=== PATIENT | female | born 1935 | race Caucasian/White ===

== ENCOUNTER 2017-07-31 10:54 | Day surgery (SDC) | payer OTHER ==
[~2017-07-31] VITALS: Ht 157.5 cm; Wt 66.2 kg
[~2017-07-31 10:54] MED LIST: ACEBUTCAFT PO; ACET325 PO; ACET500 PO; ACETAMINOPHEN PO; ALFALFA; ALFALFA250 MG PO; ANAS1; ASPI325 PO; ASPI81EC; ASPIRIN PO; Advil200 M1 PO; CHOL10002 PO; COLON CARE; CYAN500; DIPH50 PO; DOCU100 PO; ENOX40I SUBQ; FISH1000; FISH1000 PO; FLUT.05NI; GLUCHON PO; HYDACE10B; HYDACE5; HYDCHL12.5; HYDCHL12.5 PO; HYDMOR2 PO; HYDR1TAB94 PO; IBUP200 PO; IBUP400; LISI20 PO; LISI5; LISI5 PO; LISINIPRIL PO; NAPR220 PO; Nasal Spray30 ML NS; OSTEO-BI-FLEX; OTC SLEEP AID PO; PROACE50 PO; PROBIOTIC; TAMO10; VICODIN ES 7.51 EACH PO; VITAMIN E; VITS AND SUPPS; Zanaflex4 M1 PO; [UNRECOGNIZED DRUG - OTHER]
[2018-05-19] MEDS ORDERED: Fish Oil 1,0001 EAC3 PO (11:45)
[2018-05-19] MEDS ORDERED: CHOL10002 PO (11:46)
[2018-05-19] MEDS ORDERED: ALFALFA250 MG PO (11:46)
[2018-05-19] MEDS ORDERED: VICODIN 5-3001 EACH PO (11:46)
[2018-05-19] MEDS ORDERED: LUTEIN1 GM PO (11:48)
[2018-05-19] MEDS ORDERED: GABA100 PO (11:48)
[2018-05-19] MEDS ORDERED: TAMO10 PO (11:48)
== END 2017-07-31 12:16 | disposition home or self-care (01) ==
LOC: ORSCSDS 10:54
PROVIDERS: Anesthesiology
PROC: 3E0R33Z Introduction of Anti-inflammatory into Spinal Canal, Percutaneous Approach (ICD-10-PCS; principal; 2017-07-31 12:00)
DX: M51.16 Intervertebral disc disorders with radiculopathy, lumbar region (principal); I10 Essential (primary) hypertension; Z79.82 Long term (current) use of aspirin; Z79.899 Other long term (current) drug therapy
CPT/HCPCS: J1040

== ENCOUNTER 2022-01-27 10:38 | Inpatient (IN) | payer OTHER ==
[~2022-01-27] VITALS: Ht 154.9 cm; Wt 63.5 kg
[~2022-01-27 10:38] MED LIST changes: +Fish Oil 1,0001 EAC3 PO; +GABA100 PO; +LUTEIN1 GM PO; +TAMO10 PO; +VICODIN 5-3001 EACH PO
[2022-01-27 11:18] LABS: BASOPHILS ABSOLUTE AUTO 0.02 K/mm3 (0.00-0.23); BASOPHILS PERCENT AUTO 0 % (0-2); EOSINOPHILS PERCENT AUTO 0 % (0-6); Hematocrit 38.7 % (33.0-51.0); Hemoglobin 13.4 g/dL (11.5-16.0); IMMATURE GRAN ABSOLUTE AUTO 0.06 K/mm3 (0.00-0.10); IMMATURE GRAN PERCENT AUTO 0 % (0-1); LYMPHOCYTES ABSOLUTE AUTO 0.57 K/mm3 (0.84-5.20); LYMPHOCYTES PERCENT AUTO 4 % (21-46); MONOCYTES ABSOLUTE AUTO 0.75 K/mm3 (0.16-1.47); MONOCYTES PERCENT AUTO 6 % (4-13); Mean Corpuscular HGB 31.8 pg (26.0-34.0); Mean Corpuscular HGB Conc 34.6 g/dL (31.5-36.5); Mean Corpuscular Volume 92 fL (80-100); Mean Platelet Volume 9.4 fL (9.1-12.4); NEUTROPHILS ABSOLUTE AUTO 12.21 K/mm3 (1.96-9.15); NEUTROPHILS PERCENT AUTO 90 % (41-73); Platelet Count 258 K/mm3 (150-400); RDW Coefficient Variation 13.5 % (11.7-14.2); RDW Standard Deviation 45.4 fL (35.1-46.3); Red Blood Cell Count 4.21 M/mm3 (3.80-5.20); White Blood Cell Count 13.61 K/mm3 (4.00-11.30)
[2022-01-27 11:34] LABS: Albumin, Blood 3.1 g/dL (3.4-5.0); Albumin/Globulin Ratio 0.8 (0.8-1.8); Bilirubin, Total 1.6 mg/dL (0.1-1.0); Bun/Creatinine Ratio 16.7 (12.0-20.0); Creatinine, Blood 0.96 mg/dL (0.40-1.00); Globulin, Blood 3.8 g/dL (2.2-4.0); Magnesium, Blood 1.7 mg/dL (1.6-2.4); Potassium, Blood 2.9 mmol/L (3.5-5.5); Thyroid Stimulating Hormone 0.571 uIU/mL (0.360-4.800); Total Protein, Blood 6.9 g/dL (6.4-8.2)
[2022-01-27 12:01] LABS: Source, Urine Clean Catch
[2022-01-27 12:06] LABS: Appearance, Urine Cloudy (Clear); Bilirubin, Urine Neg (Neg); Blood, Urine 2+ (Neg); Color, Urine Yellow (P-Yellow); Glucose Qualitative, Urine Neg (Neg); Ketones, Urine Neg (Neg); Leukocyte Esterase, Urine 3+ (Neg); Nitrite, Urine Neg (Neg); Protein, Urine 1+ (Neg); Specific Gravity, Urine 1.005 (1.003-1.022); Urobilinogen, Urine NORM (Normal)
[2022-01-27 12:51] LABS: Influenza A, PCR NEGATIVE (NEGATIVE); Influenza B, PCR NEGATIVE (NEGATIVE); Resp Syncytial Virus, PCR NEGATIVE (NEGATIVE); SARS-Cov-2 (COVID-19) PCR, MMC NEGATIVE (NEGATIVE)
[2022-01-27 13:12] LABS: Bacteria Many /hpf; Granular Casts 0-2 /lpf (0); Hyaline Casts 0-2 /lpf (0-2); Renal Epithelial Rare /hpf (0-Rare); Squamous Epithelial Cells Many /hpf (Few); Transitional Epithelial Cells Rare /hpf (0-Rare); White Blood Cells, Urine TNTC /hpf (0-5)
[2022-01-27] MEDS ORDERED: ATORVASTATIN CA80 M1 PO (14:43)
[2022-01-27] MEDS ORDERED: FLUO10 PO ×3 (14:44→22:43)
[2022-01-27] MEDS ORDERED: ATORVASTATIN CA20 MG PO (15:58)
[2022-01-27] MEDS ORDERED: ALEN10 PO (17:08)
[2022-01-27 17:15] LABS: Anion Gap 11 mmol/L (6-16); Blood Urea Nitrogen 15 mg/dL (8-24); Bun/Creatinine Ratio 15.2 (12.0-20.0); CO2, Blood 24 mmol/L (21-32); Chloride, Blood 94 mmol/L (98-108); Creatinine, Blood 0.99 mg/dL (0.40-1.00); Glomerular Filtration Rate 56 (60-); Glucose, Blood 141 mg/dL (70-99); Sodium, Blood 129 mmol/L (136-145)
[2022-01-27] MEDS ORDERED: ATOR20 PO (22:42)
[2022-01-27] MEDS ORDERED: LISI5 PO (22:44)
[2022-01-27] MEDS ORDERED: PRED FORTE5 M1 BOTHEYES (22:44)
[2022-01-27] MEDS ORDERED: KETOROLAC TROMET5 M3 BOTHEYES (22:45)
[2022-01-27] MEDS ORDERED: HYDROCODONE-AC1 EA18 PO (22:46)
--- NOTE | 2022-01-28 03:29 | NUR ---
ENERGY TRADER SUMMARY TOLERATED HS MEDS CRUSHED WITH APPLESAUCE THE PILLS WERE "TOO BIG" TO SWALLOW OTHERWISE. HAS BEEN RESTING QUIETLY WITH FEW INTERRUPTIONS, OTHER THAN REQUESTS FOR "BEDPAN" AND ANALGESICS. IVF OF 0.5 NS INFUSING AT 100 ML/HR. CALL LIGHT IN REACH. WILL CONTINUE TO MONITOR
[2022-01-28 05:24] LABS: BASOPHILS ABSOLUTE AUTO 0.02 K/mm3 (0.00-0.23); BASOPHILS PERCENT AUTO 0 % (0-2); EOSINOPHILS ABSOLUTE AUTO 0.06 K/mm3 (0.00-0.68); EOSINOPHILS PERCENT AUTO 1 % (0-6); Hematocrit 32.3 % (33.0-51.0); Hemoglobin 11.3 g/dL (11.5-16.0); IMMATURE GRAN ABSOLUTE AUTO 0.05 K/mm3 (0.00-0.10); IMMATURE GRAN PERCENT AUTO 0 % (0-1); LYMPHOCYTES ABSOLUTE AUTO 1.21 K/mm3 (0.84-5.20); LYMPHOCYTES PERCENT AUTO 10 % (21-46); MONOCYTES ABSOLUTE AUTO 1.13 K/mm3 (0.16-1.47); MONOCYTES PERCENT AUTO 10 % (4-13); Mean Corpuscular HGB 31.9 pg (26.0-34.0); Mean Corpuscular Volume 91 fL (80-100); Mean Platelet Volume 8.9 fL (9.1-12.4); NEUTROPHILS ABSOLUTE AUTO 9.16 K/mm3 (1.96-9.15); NEUTROPHILS PERCENT AUTO 79 % (41-73); Platelet Count 196 K/mm3 (150-400); RDW Coefficient Variation 13.9 % (11.7-14.2); RDW Standard Deviation 46.5 fL (35.1-46.3); Red Blood Cell Count 3.54 M/mm3 (3.80-5.20); White Blood Cell Count 11.63 K/mm3 (4.00-11.30)
[2022-01-28 05:48] LABS: Albumin, Blood 2.6 g/dL (3.4-5.0); Anion Gap 8 mmol/L (6-16); Blood Urea Nitrogen 18 mg/dL (8-24); Bun/Creatinine Ratio 29.5 (12.0-20.0); CO2, Blood 26 mmol/L (21-32); Calcium, Blood 9.2 mg/dL (8.5-10.1); Chloride, Blood 94 mmol/L (98-108); Creatinine, Blood 0.61 mg/dL (0.40-1.00); Glomerular Filtration Rate 88 (60-); Glucose, Blood 104 mg/dL (70-99); Magnesium, Blood 2.6 mg/dL (1.6-2.4); Phosphorus, Blood 1.9 mg/dL (2.5-4.9); Potassium, Blood 3.3 mmol/L (3.5-5.5); Sodium, Blood 128 mmol/L (136-145)
--- NOTE | 2022-01-28 15:55 | NUR ---
SHIFT SUMMARY PT AxOx3 WITH INTERM CONFUSION. PT COOPERATIVE WITH CARE. PT HAD ECHO TODAY. PHYSICAL AND OCCUPATIONAL THERAPY IN FOR EVAL AND TX THIS SHIFT. PT REPORTS CHRONIC PAIN TO R SIDE. MEDICATED PER EMAR WITH REPORTED RELIEF. PT REPORTS GENERAL WEAKNESS. 2 ASSIST W/FWW AND GB FOR TRANSFERS. PT'S DAUGHTER IN FOR VISIT THIS SHIFT, UPDATED ON PLAN OF CARE BY . PT IS CURRENTLY BEING RECOMMENDED FOR SNF UPON DC. VITALS REVIEWED. PT IS RESTING IN BED WITH CALL LIGHT IN REACH. DENIES ANY NEEDS AT THIS TIME.
[2022-01-29 04:57] LABS: BASOPHILS ABSOLUTE AUTO 0.02 K/mm3 (0.00-0.23); BASOPHILS PERCENT AUTO 0 % (0-2); EOSINOPHILS ABSOLUTE AUTO 0.03 K/mm3 (0.00-0.68); EOSINOPHILS PERCENT AUTO 0 % (0-6); Hematocrit 36.7 % (33.0-51.0); Hemoglobin 12.8 g/dL (11.5-16.0); IMMATURE GRAN ABSOLUTE AUTO 0.05 K/mm3 (0.00-0.10); IMMATURE GRAN PERCENT AUTO 1 % (0-1); LYMPHOCYTES ABSOLUTE AUTO 0.94 K/mm3 (0.84-5.20); LYMPHOCYTES PERCENT AUTO 10 % (21-46); MONOCYTES ABSOLUTE AUTO 0.86 K/mm3 (0.16-1.47); MONOCYTES PERCENT AUTO 9 % (4-13); Mean Corpuscular HGB 31.5 pg (26.0-34.0); Mean Corpuscular HGB Conc 34.9 g/dL (31.5-36.5); Mean Corpuscular Volume 90 fL (80-100); Mean Platelet Volume 8.8 fL (9.1-12.4); NEUTROPHILS ABSOLUTE AUTO 7.98 K/mm3 (1.96-9.15); NEUTROPHILS PERCENT AUTO 81 % (41-73); Platelet Count 227 K/mm3 (150-400); RDW Coefficient Variation 13.7 % (11.7-14.2); RDW Standard Deviation 45.4 fL (35.1-46.3); Red Blood Cell Count 4.06 M/mm3 (3.80-5.20); White Blood Cell Count 9.88 K/mm3 (4.00-11.30)
[2022-01-29 05:12] LABS: Albumin, Blood 2.9 g/dL (3.4-5.0); Anion Gap 10 mmol/L (6-16); Blood Urea Nitrogen 10 mg/dL (8-24); Bun/Creatinine Ratio 22.7 (12.0-20.0); CO2, Blood 24 mmol/L (21-32); Calcium, Blood 9.1 mg/dL (8.5-10.1); Chloride, Blood 91 mmol/L (98-108); Creatinine, Blood 0.44 mg/dL (0.40-1.00); Glomerular Filtration Rate 95 (60-); Glucose, Blood 134 mg/dL (70-99); Magnesium, Blood 1.6 mg/dL (1.6-2.4); Phosphorus, Blood 1.7 mg/dL (2.5-4.9); Potassium, Blood 2.9 mmol/L (3.5-5.5); Sodium, Blood 125 mmol/L (136-145)
--- NOTE | 2022-01-29 05:44 | NUR ---
SHIFT SUMMARY 84 YR F ADMITTED ON 01/27/22 FOR UTI/PNEUMONIA. DNR. PT IS VERY CONFUSED AND DOES NOT SEEM TO UNDERSTAND WHERE SHE IS OR WHY. SHE FIDGETS WITH HER HANDS ALOT IF SHE IS ANXIOUS AND DOESN'T KNOW WHAT TO DO. SHE STATED MULTIPLE TIMES THAT SHE NEEDED TO "GET THINGS IN ORDER". PER INSTALLATION SUPERINTENDENT PT HAD SEVERAL ST SPIKES IT WAS DISCUSSED W/ CHARGE NURSE WHO DECIDED THAT AN EKG WAS NOT WARRANTED AT THIS TIME.
--- NOTE | 2022-01-29 12:50 | NUR ---
SPOKE TO DAUGHTER JAYNA KAT DORANTES SPOKE TO THIS RN AND STATED THAT THE PT LIVES ALONE IN HER HOUSE. HER DAUGHTER MARSHALL LIVES ON THE PROPERTY APART FROM THE HOUSE. DR. GARCIA GIVEN MAN NUMBER. JAYNA ESCOBEDO POA: [phone]
--- NOTE | 2022-01-29 17:19 | NUR ---
SHIFT SUMMARY PT FELL THIS AM IN THE HALLWAY. SEE POST FALL NOT. PT MORE ORIENTED THIS AFTERNOON AND AWARE OF WHERE SHE IS AND WHY SHE IS HERE. PT DOES NOT REMEMBER THE MORNING OR FALLING. PT TRANSFERING EASIER WITH ONLY 1 ASSIST THIS AFTERNOON. MEDICATED FOR PAIN TWICE THIS SHIFT SO FAR. DR. GARCIA NOTIFIED THAT PTS DAUGHTER, JAYNA WANTED TO BE UPDATED ON PT CONDITION. NO OTHER ACUTE CHANGES IN ASSESSMENT AT THIS TIME. VS REVIEWED. CALL LIGHT IN REACH. DENIES OTHER NEEDS A THIS TIME.
[2022-01-30 01:36] LABS: C DIFFICILE DNA POSITIVE (Negative)
--- NOTE | 2022-01-30 04:28 | NUR ---
SHIFT SUMMARY NO ACUTE CHANGES TO PT CONDITION. PT RECENTLY MEDICATED PER EMAR FOR RECURRING BACK AND SIDE PAIN. PT HAS NO OTHER COMPLAINTS AT THIS TIME. CALL LIGHT IS WITHIN HER REACH AND SHE HAS BEEN INSTRUCTED ON HOW TO USE IT.
[2022-01-30 04:52] LABS: BASOPHILS ABSOLUTE AUTO 0.02 K/mm3 (0.00-0.23); BASOPHILS PERCENT AUTO 0 % (0-2); EOSINOPHILS ABSOLUTE AUTO 0.11 K/mm3 (0.00-0.68); EOSINOPHILS PERCENT AUTO 1 % (0-6); Hemoglobin 11.2 g/dL (11.5-16.0); IMMATURE GRAN ABSOLUTE AUTO 0.04 K/mm3 (0.00-0.10); IMMATURE GRAN PERCENT AUTO 0 % (0-1); LYMPHOCYTES PERCENT AUTO 14 % (21-46); MONOCYTES ABSOLUTE AUTO 0.91 K/mm3 (0.16-1.47); MONOCYTES PERCENT AUTO 10 % (4-13); Mean Corpuscular HGB 31.9 pg (26.0-34.0); Mean Corpuscular Volume 91 fL (80-100); Mean Platelet Volume 8.9 fL (9.1-12.4); NEUTROPHILS PERCENT AUTO 74 % (41-73); Platelet Count 215 K/mm3 (150-400); RDW Coefficient Variation 13.9 % (11.7-14.2); RDW Standard Deviation 46.7 fL (35.1-46.3); Red Blood Cell Count 3.51 M/mm3 (3.80-5.20); White Blood Cell Count 9.18 K/mm3 (4.00-11.30)
[2022-01-30 05:13] LABS: Albumin, Blood 2.7 g/dL (3.4-5.0); Albumin/Globulin Ratio 0.8 (0.8-1.8); Bilirubin, Total 0.9 mg/dL (0.1-1.0); Bun/Creatinine Ratio 29.8 (12.0-20.0); Calcium, Blood 9.3 mg/dL (8.5-10.1); Creatinine, Blood 0.5 mg/dL (0.40-1.00); Globulin, Blood 3.6 g/dL (2.2-4.0); Potassium, Blood 4.1 mmol/L (3.5-5.5); Total Protein, Blood 6.3 g/dL (6.4-8.2)
--- NOTE | 2022-01-30 08:00 | NUR ---
pt in bed asking to get to bsc, she is irritable, was placed in a chair for breakfast and is upset about that because of her pain, but wont tell this nurse where it is, goes on about having it for 20yrs, offered heating pad, she acts discusted with every suggestion, she is allowed norco tid, was given one at 0400, she states she shouldn't have had one then, needs it now for breakfast, and insists that she wont eat until she recieves one, spoke with Dr. Forman and obtained a one time extra dose to give her, she refuses to take her other meds until she gets breakfast, offered to lay her down, nothing is acceptable at this time. gave her dose of norco, and will wait until she feels better to try the rest of her medications. call light in reach.
--- NOTE | 2022-01-30 10:14 | NUR ---
pt is somewhat better and more cooperative with care, she took her po meds one at a time with water, then had me crush the bigger ones, started on vanco for c-diff, allowed me to place a lidocane patch, but states it wont help. is going to rest now, call light in reach.
--- NOTE | 2022-01-30 15:53 | NUR ---
PT in room to work with pt, she needed to go to the [facility], and wanted a female in the room, the nurse assisted, she wasn't doing as much for herself this time as she did this am, again everything was wrong, did have a small soft brown bm, got her back to bed and offered her a pain pill, she wont give a straight answer, encouraged her to call if she decides she wants one. call light in reach.
--- NOTE | 2022-01-30 16:39 | NUR ---
Assited with pt care. Will review pt with OT\PT pt aggitated has some difficulty tracking conversation gets anxious.
--- NOTE | 2022-01-30 18:07 | NUR ---
a bit more cooperative this evening, asking repetative questions, gave her a pain pill although I couldn't get a straight answer if in pain, but when asked how much pain she said 9. no acute changes this shift. call light in reach.
--- NOTE | 2022-01-30 21:28 | NUR ---
PT REFUSED NIGHT MEDICATIONS.
--- NOTE | 2022-01-31 02:22 | NUR ---
PT REFUSING TO TAKE MOST OF HER MEDICATIONS TONIGHT. MOST RECENTLY PT REFUSED TO TAKE HER VANCO AFTER SHE STATED SHE WOULD TAKE IT.
--- NOTE | 2022-01-31 04:11 | NUR ---
SHIFT SUMMARY PT CONFUSED AND AGITATED. PT REFUSING TO TAKE MOST OF HER MEDICATIONS THIS SHIFT. PT TRIED TO GET OUT OF BED X 1 DURING THIS EVENING, SETTING OFF BED ALARM. ALARM WAS RESET AND PT HELPED BACK TO BED. PT HAS CALL LIGHT WITHIN REACH. PT DID HAVE HR IN THE 117'S FOR AROUND TWO HOURS. CALLED AND WAS GIVEN AN ORDER FOR 25 MG SEROQUEL. CUSTOMER CARE SPECIALIST WAS ABLE TO GET THE PT TO TAKE THE MEDICATION. HER HR IS NOW BACK IN THE 70'S.
[2022-01-31 05:06] LABS: BASOPHILS ABSOLUTE AUTO 0.03 K/mm3 (0.00-0.23); BASOPHILS PERCENT AUTO 0 % (0-2); EOSINOPHILS ABSOLUTE AUTO 0.11 K/mm3 (0.00-0.68); EOSINOPHILS PERCENT AUTO 1 % (0-6); Hematocrit 34.4 % (33.0-51.0); Hemoglobin 11.7 g/dL (11.5-16.0); IMMATURE GRAN ABSOLUTE AUTO 0.04 K/mm3 (0.00-0.10); IMMATURE GRAN PERCENT AUTO 0 % (0-1); LYMPHOCYTES ABSOLUTE AUTO 1.23 K/mm3 (0.84-5.20); LYMPHOCYTES PERCENT AUTO 12 % (21-46); MONOCYTES ABSOLUTE AUTO 1.07 K/mm3 (0.16-1.47); MONOCYTES PERCENT AUTO 10 % (4-13); Mean Corpuscular HGB 31.5 pg (26.0-34.0); Mean Corpuscular Volume 93 fL (80-100); Mean Platelet Volume 9.1 fL (9.1-12.4); NEUTROPHILS ABSOLUTE AUTO 7.86 K/mm3 (1.96-9.15); NEUTROPHILS PERCENT AUTO 76 % (41-73); Platelet Count 216 K/mm3 (150-400); RDW Standard Deviation 48.3 fL (35.1-46.3); Red Blood Cell Count 3.71 M/mm3 (3.80-5.20); White Blood Cell Count 10.34 K/mm3 (4.00-11.30)
[2022-01-31 05:41] LABS: Albumin, Blood 2.8 g/dL (3.4-5.0); Anion Gap 6 mmol/L (6-16); Blood Urea Nitrogen 10 mg/dL (8-24); Bun/Creatinine Ratio 18.3 (12.0-20.0); CO2, Blood 27 mmol/L (21-32); Calcium, Blood 9.5 mg/dL (8.5-10.1); Chloride, Blood 95 mmol/L (98-108); Creatinine, Blood 0.55 mg/dL (0.40-1.00); Glomerular Filtration Rate 90 (60-); Glucose, Blood 111 mg/dL (70-99); Phosphorus, Blood 2.6 mg/dL (2.5-4.9); Potassium, Blood 4.3 mmol/L (3.5-5.5); Sodium, Blood 128 mmol/L (136-145)
[2022-01-31] MEDS ORDERED: ELIQUIS5 M2 PO (12:23)
[2022-01-31] MEDS ORDERED: PAIN RELIEF1 EACH TOP (12:24)
[2022-01-31] MEDS ORDERED: MAGNESIUM OXID400 M1 PO (12:24)
[2022-01-31] MEDS ORDERED: K-Phos Origina500 MG PO (12:26)
[2022-01-31] MEDS ORDERED: TIZANIDINE HCL2 M1 PO (12:27)
[2022-01-31] MEDS ORDERED: VANCOCIN HCL125 MG PO (12:28)
[2022-01-31 12:29] LABS: Influenza A, PCR NEGATIVE (NEGATIVE); Influenza B, PCR NEGATIVE (NEGATIVE); Resp Syncytial Virus, PCR NEGATIVE (NEGATIVE); SARS-Cov-2 (COVID-19) PCR, MMC NEGATIVE (NEGATIVE)
--- NOTE | 2022-01-31 15:53 | NUR ---
DISCHARGE SUMMARY PT DIS[facility]GED TO [facility]. TOOK MEDICATIONS THIS MORNING CRUSHED IN APPLESAUCE BUT REFUSED AFTERNOON MEDICATIONS. IS CONFUSED AND CAN BE LABILE. WORKED WELL WITH OCCUPATIONAL THERAPY AND UP TO THE CHAIR FOR MEALS. DC'D TO SNF BY AMBULANCE. REPORT CALLED TO [facility] RN.
== END 2022-01-31 15:36 | DRG 193 ==
LOC: ER 10:38 → MEDS 15:00
PROVIDERS: Emergency Medicine; Family Medicine; ADMIT Family Medicine
DX: J18.9 Pneumonia, unspecified organism (principal); G93.41 Metabolic encephalopathy; N18.6 End stage renal disease; N39.0 Urinary tract infection, site not specified; A04.72 Enterocolitis due to Clostridium difficile, not specified as recurrent; E87.1 Hypo-osmolality and hyponatremia; F11.20 Opioid dependence, uncomplicated; I12.0 Hypertensive chronic kidney disease with stage 5 chronic kidney disease or end stage renal disease; F01.51 Vascular dementia, unspecified severity, with behavioral disturbance; Z66 Do not resuscitate; Z20.822 Contact with and (suspected) exposure to COVID-19; I48.91 Unspecified atrial fibrillation; K80.20 Calculus of gallbladder without cholecystitis without obstruction; F41.9 Anxiety disorder, unspecified; M54.9 Dorsalgia, unspecified; G89.29 Other chronic pain; E87.6 Hypokalemia; E83.39 Other disorders of phosphorus metabolism; E78.5 Hyperlipidemia, unspecified; M51.9 Unspecified thoracic, thoracolumbar and lumbosacral intervertebral disc disorder; I70.0 Atherosclerosis of aorta; E83.52 Hypercalcemia; Z96.653 Presence of artificial knee joint, bilateral; E87.8 Other disorders of electrolyte and fluid balance, not elsewhere classified; Z79.82 Long term (current) use of aspirin; Z79.811 Long term (current) use of aromatase inhibitors; Z86.73 Personal history of transient ischemic attack (TIA), and cerebral infarction without residual deficits; Z85.3 Personal history of malignant neoplasm of breast; Z98.890 Other specified postprocedural states; Z90.710 Acquired absence of both cervix and uterus; Z90.12 Acquired absence of left breast and nipple; Z79.02 Long term (current) use of antithrombotics/antiplatelets; Z79.899 Other long term (current) drug therapy; Z99.2 Dependence on renal dialysis; T50.2X5A Adverse effect of carbonic-anhydrase inhibitors, benzothiadiazides and other diuretics, initial encounter; T43.225A Adverse effect of selective serotonin reuptake inhibitors, initial encounter
CPT/HCPCS: 0241U; 36415; 70450; 71045; 74177; 76705; 80053; 80069; 81001; 83605; 83735; 83880; 84145; 84443; 84484; 85025; 87040; 87086; 87324; 87449; 87493; 93005; 93010; 93306; 96374; 97110; 97112; 97162; 97165; 97530; 97535; 99285-25; A9270; J0456; J0696; J3475; J7050; Q9967